=== PATIENT | female | born 1940 | race Caucasian/White ===

== ENCOUNTER 2017-09-30 08:51 | Inpatient (IN) | payer OTHER ==
[~2017-09-30] VITALS: Ht 152.4 cm; Wt 49.0 kg
[~2017-09-30 08:51] MED LIST: AMLODIPINE BESY10 MG PO; ASPIR-LOW81 MG PO; CITALOPRAM HBR10 MG PO; CLONAZEPAM0.5 MG PO; ELIQUIS2.5 MG PO; FISH OIL300 MG PO; LO-DOSE ASPIRIN81 M1 PO; MULTIVITAMIN1 EAC2 PO; OCUVITE TABLET1 EACH PO; OMEPRAZOLE20 MG PO; OXYCODONE-APAP1 EACH PO
[2017-09-30 13:52] VITALS: BP 133/63
[2017-09-30] MEDS ORDERED: COLACE100 MG PO (15:01)
[2017-09-30] MEDS ORDERED: SENNA-DOCUSATE1 EAC1 PO (15:01)
[2017-09-30] MEDS ORDERED: MAALOX ADVANCE355 ML PO (15:06)
[2017-09-30] MEDS ORDERED: PROTONIX40 MG PO (15:07)
[2017-09-30 16:54] VITALS: BP 128/58
[2017-10-01 00:50] VITALS: BP 118/58
[2017-10-01 04:39] VITALS: BP 133/62
[2017-10-01 06:44] LABS: HEMATOCRIT 27.8 % (36.0-46.0); MCH 30.7 PG (29.0-34.0); MCHC 33.5 G/DL (30.0-36.0); MCV 91.7 FL (83-99); MEAN PLAT.VOLUME 9.8 uM^3 (9.5-12.4); PLATELET COUNT 165 K/uL (156-360); RBC DIS.WIDTH-CV 13.6 % (11.8-14.6); RBC DIS.WIDTH-SD 45.8 % (39-53); RED BLOOD COUNT 3.03 M/uL (3.80-5.20); WHITE BLOOD COUNT 4.6 K/uL (4.1-10.2)
[2017-10-01 07:08] LABS: ALKALINE PHOSPHATASE 50 IU/L (3-129); ANION GAP 6 MEQ/L (2-14); CHLORIDE 101 MEQ/L (99-109); GFR ESTIMATE (CALCULATED) > 59 mL/min/; GLUCOSE 91 mg/dL (70-99); POTASSIUM 3.4 MEQ/L (3.7-5.4); SAMPLE HEMOLYSIS CHECK 0; SAMPLE ICTERIC CHECK 0; SAMPLE LIPEMIA CHECK 0; SODIUM 143 MEQ/L (136-147); TOTAL BILIRUBIN 0.9 MG/DL (0.0-1.0); UREA NITROGEN (BUN) 10 mg/dL (9-23)
[2017-10-01 15:40] VITALS: BP 139/64
[2017-10-02 05:36] VITALS: BP 147/65
[2017-10-02 15:11] VITALS: BP 151/67
[2017-10-03 05:58] VITALS: BP 142/64
[2017-10-03 15:40] VITALS: BP 143/66
[2017-10-04 05:35] VITALS: BP 142/67
[2017-10-04 15:03] VITALS: BP 124/59
[2017-10-05 05:42] VITALS: BP 139/61
[2017-10-05] MEDS ORDERED: COLACE100 MG PO (10:12)
[2017-10-05] MEDS ORDERED: ELIQUIS2.5 MG PO (10:12)
[2017-10-05] MEDS ORDERED: Tylenol Extra Streng PO (10:12)
[2017-10-05 12:30] LABS: HEMATOCRIT 31.7 % (36.0-46.0); MCH 30.5 PG (29.0-34.0); MCHC 32.5 G/DL (30.0-36.0); MCV 93.8 FL (83-99); MEAN PLAT.VOLUME 9.3 uM^3 (9.5-12.4); RBC DIS.WIDTH-CV 14.1 % (11.8-14.6); RBC DIS.WIDTH-SD 48.2 % (39-53); RED BLOOD COUNT 3.38 M/uL (3.80-5.20); WHITE BLOOD COUNT 5.3 K/uL (4.1-10.2)
[2017-10-05 12:35] LABS: PLATELET COUNT 299 K/uL (156-360)
== END 2017-10-05 14:15 | DRG 560 ==
LOC: 3WEST 08:51 → ENPENDDIS 10-05 → 3WEST 10-05 14:15
PROVIDERS: Psychiatry & Neurology Neurology
PROC: F07M0ZZ Range of Motion and Joint Mobility Treatment of Musculoskeletal System - Whole Body (ICD-10-PCS; principal; 2017-09-30)
DX: S72.141D Displaced intertrochanteric fracture of right femur, subsequent encounter for closed fracture with routine healing (principal); W19.XXXD Unspecified fall, subsequent encounter; R26.2 Difficulty in walking, not elsewhere classified; M62.81 Muscle weakness (generalized); D62 Acute posthemorrhagic anemia; G89.18 Other acute postprocedural pain; M25.551 Pain in right hip; K21.9 Gastro-esophageal reflux disease without esophagitis; I10 Essential (primary) hypertension
CPT/HCPCS: 80053; 85027; 97110 GO; 97530 GP